=== PATIENT | male | born 1950 | race Caucasian/White ===

== ENCOUNTER 2017-08-28 10:22 | Emergency (ER) | payer OTHER ==
[~2017-08-28] VITALS: Ht 185.4 cm; Wt 77.0 kg
[2017-08-28 10:24] VITALS: BP 106/53; PULSE 69; RESP 16; TEMP 98.4; O2SAT 96
[2017-08-28] MEDS ORDERED: GELFOAM SIZE 100 TOPICAL ONE (10:45)
[2017-08-28] MEDS ORDERED: ACETAMINOPHEN/HYDROcodone 325 MG/5 MG TAB PO ONE (10:45)
[2017-08-28] MEDS ORDERED: TETANUS/DIPHTHERIA TOXOID ADULT 0.5 ML VIAL IM ONE (11:00)
--- NOTE | 2017-08-28 11:07 | PD ---
HPI Chief Complaint: Injury Time Seen by Provider: 10:38 Travel History International Travel<30 days: No Contact w/Intl Traveler<30days: No Traveled to known affect area: No History of Present Illness HPI 67yo M with no PMH presents to the ED with c/o distal phalanx amputation of right third digit today. Pt was helping carry a stainless steel table and the sharp edge sliced off the distal part of his right third digit about an hour prior to arrival. Pt did not bring the amputated piece here. Tetanus not up to date. Not on any anticoagulation. Denies any fever, chest pain, sob, n/v, abdominal pain, focal weakness or numbness. Pt is right handed. PFSH Past Medical History Medical History: Denies Significant Hx Tetanus Vaccination: > 5 Years Past Surgical History Appendectomy: Yes Social History Alcohol Use: No Tobacco Use: No Substance Use: No Allergies-Medications (Allergen,Severity, Reaction): Coded Allergies: No Known Allergies (Unverified , 08/28/17) Reported Meds & Prescriptions Reported Meds & Active Scripts Active Tylenol (Acetaminophen) 325 Mg Tab 650 Mg PO Q6H PRN Keflex (Cephalexin) 500 Mg Capsule 500 Mg PO Q8H 7 Days Review of Systems Except as stated in HPI: all other systems reviewed are Neg Physical Exam Narrative GENERAL: 67yo M in mild distress. SKIN: Focused skin assessment warm/dry. HEAD: Atraumatic. Normocephalic. CARDIOVASCULAR: Regular rate and rhythm. No murmur appreciated. RESPIRATORY: No accessory muscle use. Clear to auscultation. Breath sounds equal bilaterally. GASTROINTESTINAL: Abdomen soft, non-tender, nondistended. MUSCULOSKELETAL: Right hand: +Distal phalanx amputation right third digit distal to DIP. Able to flex and extend all joints, sensation intact. Active bleeding. Able to palpated the bone distally. Radial pulse 2+. NEUROLOGICAL: Awake and alert. No obvious cranial nerve deficits. Motor grossly within normal limits. Normal speech. PSYCHIATRIC: Appropriate mood and affect; insight and judgment normal. Data Data Last Documented VS Vital Signs Date Time Temp Pulse Resp B/P (MAP) Pulse Ox O2 Delivery O2 Flow Rate FiO2 08/28/17 12:56 08/28/17 10:24 98.4 69 16 96 Room Air Orders Orders Gelfoam 100 Top (Gelfoam 100 Top) (08/28/17 10:45) Acetamin-Hydrocod 325-5 Mg (Jackson 5-325 (08/28/17 10:45) Hand, Limited (2vws) (08/28/17 ) Tetanus/Diphtheria Tox Adult (Tetanus/Di (08/28/17 11:00) Lidocaine 1% Inj (50 Ml) (Xylocaine 1% I (08/28/17 11:30) Ed Discharge Order (08/28/17 12:47) Cephalexin (Keflex) (08/28/17 13:00) MDM Medical Decision Making Medical Screen Exam Complete: Yes Emergency Medical Condition: Yes Differential Diagnosis Distal phalanx amputation vs. fracture Narrative Course 67yo M with right third distal phalanx amputation after a steel table sliced it. Xray right hand showed soft tissue and bony amputation involving the tuft of the distal phalanx of the third finger. Neurovascular intact. I discussed with hand surgeon manager document control Dr. Sampson who recommended trimming a little with bone ronjour and stopping the bleeding with cautery or pressure and applying xeroform and following up as outpatient. I attempted to smooth the bone with bone ronjour and cauterized distal arteries after digital block and irrigation. Xeroform gauze applied and bulky dressing applied. Pt instructed to follow up with hand surgery today or tomorrow. Updated pt on tetanus and pt given 1 percocet. Will give first dose of keflex here. Pt has been observed in the ED without further bleeding. Pain is controlled. Diagnosis Primary Impression: Fracture of distal phalanx of finger, open Qualified Codes: S62.662B - Nondisplaced fracture of distal phalanx of right middle finger, initial encounter for open fracture Referrals: Joo Sampson III, MD 1 day Distal phalanx amputation right third digit Patient Instructions: General Instructions Departure Forms: Tests/Procedures Additional Instructions: Please follow up with hand surgery Dr. Sampson today or tomorrow. Return to the ED if symptoms worsen. Med/Other Pt SpecificInfo: Prescription(s) given Scripts Acetaminophen (Tylenol) 325 Mg Tab 650 MG PO Q6H Y for PAIN SCALE 1 TO 4, #20 TAB 0 Refills Prov: Ana Maloney DO 08/28/17 Cephalexin (Keflex) 500 Mg Capsule 500 MG PO Q8H for Infection for 7 Days, #21 CAP 0 Refills Prov: Ana Maloney DO 08/28/17 Disposition: 01 DISCHARGE HOME Condition: Stable Ana Maloney DO Aug 28, 2017 11:07
--- NOTE | 2017-08-28 11:16 | RADRPT ---
EXAM DATE/TIME: 08/28/2017 11:06 [facility] COMPARISON: No previous studies available for comparison. INDICATIONS : Right hand pain and laceration after metal table fell on third digit. MEDICAL HISTORY : None. SURGICAL HISTORY : None. ENCOUNTER: Initial ACUITY: 1 day PAIN SCORE: 4/10 LOCATION: Right hand, third digit. FINDINGS: 2 views of the right hand reveal amputation involving the tuft of the third finger. Soft tissue and b sean tuft indentation is seen. The majority of the distal phalanx remains. No radiopaque foreign aga s observed. Remaining bony structures are unremarkable. CONCLUSION: Soft tissue and bony amputation involving the tuft of the distal phalanx of the third finger. Anoop Jackson Jr., MD on August 28, 2017 at 11:14 Board Certified Radiologist. This report was verified electronically.
[2017-08-28] MEDS ORDERED: LIDOCAINE HCL 1% 50 ML VIAL INFIL ONE (11:30)
[2017-08-28] MEDS ORDERED: CEPH-460 PO (12:58)
[2017-08-28] MEDS ORDERED: TYLE325T PO (12:58)
[2017-08-28] MEDS ORDERED: CEPHALEXIN MONOHYDRATE 500 MG CAP PO ONE (13:00)
== END 2017-08-28 13:07 | disposition home or self-care (01) ==
LOC: NEPD 10:22
DX: S68.612A Complete traumatic transphalangeal amputation of right middle finger, initial encounter (principal); W26.8XXA Contact with other sharp object(s), not elsewhere classified, initial encounter; Y93.89 Activity, other specified; Z23 Encounter for immunization
CPT/HCPCS: 12001; 73120; 90471; 90714